=== PATIENT | female | born 1995 | race Two or more races ===

== ENCOUNTER → 2020-10-31 | Outpatient (CLI) | payer BC ==
[2020-10-31 10:54] LABS: Basophils # (auto) 0 10 ^3/uL (0-0.2); Basophils % (auto) 0.5 % (0.0-2.0); Eosinophils # (auto) 0.1 10 ^3/uL (0-0.8); Eosinophils % (auto) 1.6 % (0.0-7.0); Hematocrit 37.6 % (36.0-46.0); Hemoglobin 12.6 g/dL (12.2-16.2); Lymphocytes # (auto) 2.6 10 ^3/uL (0.4-5.4); Lymphocytes % (auto) 47.5 % (10.0-50.0); Mean Corpuscular Hemoglobin 29.9 pg (28.0-32.0); Mean Corpuscular Hgb Conc. 33.6 g/dL (32.0-36.0); Monocytes # (auto) 0.4 10 ^3/uL (0-1.3); Monocytes % (auto) 7.1 % (0.0-12.0); Neutrophils # (auto) 2.4 10 ^3/uL (1.6-8.6); Neutrophils % (auto) 43.3 % (37.0-80.0); Nucleated Red Blood Cells % 0.1 %; Platelet Count (auto) 260 10^3/uL (140-450); Red Blood Cells 4.23 10^6/uL (4.0-5.20); Red Cell Distribution Width 13.2 % (11.8-14.3); White Blood Cell 5.5 10^3/uL (4.4-10.8)
[2020-10-31 11:30] LABS: Albumin 3.9 g/dL (3.4-5.0); Calcium 8.8 mg/dL (8.5-10.1); Potassium 4.8 mmol/L (3.5-5.1)
[2020-10-31 11:34] LABS: BUN/Creatinine Ratio 12.9; Bilirubin, Total 0.6 mg/dL (0.2-1.0)
[2020-10-31 11:35] LABS: Follicle Stimulating Hormone 4.39 IU/L (SEE BELOW); Free T4 (Free Thyroxine) 1.14 ng/dL (0.89-1.76); Leuteinizing Hormone 10.2 IU/L; Prolactin 8.52 ng/mL (2.8-29.2)
== END | disposition home or self-care (01) ==
LOC: LAB 10:11
PROVIDERS: ATTEND Internal Medicine
DX: N92.0 Excessive and frequent menstruation with regular cycle (principal); E28.2 Polycystic ovarian syndrome
CPT/HCPCS: 36415; 80053; 83001; 83002; 84146; 84439; 84443; 85025; 85652

== ENCOUNTER → 2022-03-30 | Outpatient (CLI) | payer BC ==
[2022-03-30 13:01] LABS: Basophils # (auto) 0 10 ^3/uL (0-0.2); Basophils % (auto) 0.5 % (0.0-2.0); Eosinophils # (auto) 0.1 10 ^3/uL (0-0.8); Eosinophils % (auto) 1.3 % (0.0-7.0); Hematocrit 34.6 % (36.0-46.0); Hemoglobin 11.2 g/dL (12.2-16.2); Mean Corpuscular Hemoglobin 27.9 pg (28.0-32.0); Mean Corpuscular Hgb Conc. 32.4 g/dL (32.0-36.0); Mean Corpuscular Volume 86.3 fL (80.0-100.0); Monocytes # (auto) 0.5 10 ^3/uL (0-1.3); Monocytes % (auto) 7.1 % (0.0-12.0); Neutrophils # (auto) 3.3 10 ^3/uL (1.6-8.6); Neutrophils % (auto) 48.1 % (37.0-80.0); Nucleated Red Blood Cells % 0.1 %; Red Cell Distribution Width 13.3 % (11.8-14.3); White Blood Cell 6.9 10^3/uL (4.4-10.8)
[2022-03-30 13:23] LABS: Albumin 3.7 g/dL (3.4-5.0); Calcium 8.2 mg/dL (8.5-10.1); Potassium 3.9 mmol/L (3.5-5.1)
[2022-03-30 13:26] LABS: BUN/Creatinine Ratio 19.5; Bilirubin, Total 0.7 mg/dL (0.2-1.0); Total Protein 7.3 g/dL (6.4-8.2)
[2022-03-30 13:32] LABS: Free T4 (Free Thyroxine) 1.2 ng/dL (0.89-1.76); Prolactin 9.67 ng/mL (2.8-29.2)
[2022-03-30 13:38] LABS: Beta HCG, Quantitative < 1 mlU/mL (1-3); Thyroid Stimulating Hormone 0.99 uIU/mL (0.358-3.74)
== END | disposition home or self-care (01) ==
LOC: LAB 12:38
PROVIDERS: ATTEND Internal Medicine
DX: N93.9 Abnormal uterine and vaginal bleeding, unspecified (principal)
CPT/HCPCS: 36415; 80053; 84146; 84439; 84443; 84702; 85025

== ENCOUNTER → 2022-11-20 | Outpatient (CLI) | payer BC ==
[2022-11-20 07:40] LABS: Basophils # (auto) 0 10 ^3/uL (0-0.2); Basophils % (auto) 0.8 % (0.0-2.0); Eosinophils # (auto) 0.1 10 ^3/uL (0-0.8); Eosinophils % (auto) 2.3 % (0.0-7.0); Hematocrit 39.1 % (36.0-46.0); Hemoglobin 13.2 g/dL (12.2-16.2); Lymphocytes # (auto) 2.7 10 ^3/uL (0.4-5.4); Lymphocytes % (auto) 48.9 % (10.0-50.0); Mean Corpuscular Hemoglobin 29.6 pg (28.0-32.0); Mean Corpuscular Hgb Conc. 33.8 g/dL (32.0-36.0); Mean Corpuscular Volume 87.5 fL (80.0-100.0); Monocytes # (auto) 0.4 10 ^3/uL (0-1.3); Monocytes % (auto) 7.6 % (0.0-12.0); Neutrophils # (auto) 2.3 10 ^3/uL (1.6-8.6); Neutrophils % (auto) 40.4 % (37.0-80.0); Nucleated Red Blood Cells % 0.1 %; Red Blood Cells 4.47 10^6/uL (4.0-5.20); Red Cell Distribution Width 14.5 % (11.8-14.3); White Blood Cell 5.6 10^3/uL (4.4-10.8)
[2022-11-20 08:14] LABS: Urine Bacteria NONE SEEN /hpf (None Seen); Urine Blood TRACE /uL (Negative); Urine Specific Gravity 1.016 (1.001-1.035); Urine WBC 1 /hpf (0 - 5)
[2022-11-20 08:23] LABS: Albumin 3.9 g/dL (3.4-5.0); Calcium 8.9 mg/dL (8.5-10.1); Potassium 4.4 mmol/L (3.5-5.1)
[2022-11-20 08:32] LABS: Free T4 (Free Thyroxine) 1.04 ng/dL (0.89-1.76)
[2022-11-20 08:33] LABS: BUN/Creatinine Ratio 13.1 (10.0-20.0); Bilirubin, Total 0.9 mg/dL (0.2-1.0); Total Protein 7.6 g/dL (6.4-8.2)
[2022-11-20 08:48] LABS: % Iron Saturation 27.7 % (15-50)
== END | disposition home or self-care (01) ==
LOC: LAB 07:22
PROVIDERS: ATTEND Internal Medicine
DX: D64.9 Anemia, unspecified (principal); E28.2 Polycystic ovarian syndrome
CPT/HCPCS: 36415; 80053; 80061; 81001; 82607; 83036; 83540; 83550; 84439; 84443; 85025; 85652

== ENCOUNTER → 2023-10-25 | Outpatient (CLI) | payer BC ==
[2023-10-25 10:59] LABS: Basophils # (auto) 0 10 ^3/uL (0-0.2); Basophils % (auto) 0.7 % (0.0-2.0); Eosinophils # (auto) 0.1 10 ^3/uL (0-0.8); Eosinophils % (auto) 1.5 % (0.0-7.0); Hematocrit 40.2 % (36.0-46.0); Hemoglobin 13.2 g/dL (12.2-16.2); Lymphocytes # (auto) 2.5 10 ^3/uL (0.4-5.4); Lymphocytes % (auto) 42.8 % (10.0-50.0); Mean Corpuscular Hemoglobin 28.8 pg (28.0-32.0); Mean Corpuscular Hgb Conc. 32.8 g/dL (32.0-36.0); Mean Corpuscular Volume 87.8 fL (80.0-100.0); Monocytes # (auto) 0.5 10 ^3/uL (0-1.3); Monocytes % (auto) 8.7 % (0.0-12.0); Neutrophils # (auto) 2.7 10 ^3/uL (1.6-8.6); Neutrophils % (auto) 46.3 % (37.0-80.0); Red Blood Cells 4.58 10^6/uL (4.0-5.20); Red Cell Distribution Width 13.7 % (11.8-14.3); White Blood Cell 5.8 10^3/uL (4.4-10.8)
[2023-10-25 11:38] LABS: Alanine Aminotransferase 46 U/L (7-40); Alkaline Phosphatase 73 U/L (46-116); Anion Gap 4 (5-15); Aspartate Aminotransferase 28 U/L (13-40); BUN/Creatinine Ratio 8.1 (10.0-20.0); Blood Urea Nitrogen 7 mg/dL (9-23); Calcium 9.8 mg/dL (8.5-10.1); Carbon Dioxide 27 mmol/L (20-30); Chloride 106 mmol/L (98-107); Glucose 89 mg/dL (74-106); LDL Cholesterol 200 mg/dL (< 100); Potassium 4.1 mmol/L (3.5-5.1); Sodium 137 mmol/L (136-145); Triglycerides 83 mg/dL (< 150)
[2023-10-25 11:39] LABS: Albumin 4.7 g/dL (3.2-4.8); Bilirubin, Total 1.3 mg/dL (0.2-1.0); Cholesterol 250 mg/dL (< 200); HDL Cholesterol 43 mg/dL (40-59); Total Protein 7.6 g/dL (5.7-8.2)
[2023-10-25 12:03] LABS: Erythrocyte Sedimentation Rate 18 mm/hr (0-20)
== END | disposition home or self-care (01) ==
LOC: LAB 10:25
PROVIDERS: ATTEND Internal Medicine
DX: E28.2 Polycystic ovarian syndrome (principal); M54.31 Sciatica, right side
CPT/HCPCS: 36415; 80053; 80061; 84439; 84443; 85025; 85652

== ENCOUNTER → 2024-04-16 | Outpatient (CLI) | payer BC ==
[2024-04-16 11:49] LABS: Basophils # (auto) 0 10 ^3/uL (0-0.2); Basophils % (auto) 0.4 % (0.0-2.0); Eosinophils # (auto) 0.1 10 ^3/uL (0-0.8); Eosinophils % (auto) 1.1 % (0.0-7.0); Hemoglobin 13.6 g/dL (12.2-16.2); Lymphocytes # (auto) 2.1 10 ^3/uL (0.4-5.4); Lymphocytes % (auto) 30.7 % (10.0-50.0); Mean Corpuscular Hemoglobin 29.6 pg (28.0-32.0); Mean Corpuscular Hgb Conc. 33.2 g/dL (32.0-36.0); Mean Corpuscular Volume 89.1 fL (80.0-100.0); Monocytes # (auto) 0.4 10 ^3/uL (0-1.3); Monocytes % (auto) 6.1 % (0.0-12.0); Neutrophils # (auto) 4.1 10 ^3/uL (1.6-8.6); Neutrophils % (auto) 61.7 % (37.0-80.0); Nucleated Red Blood Cells % 0.1 %; Platelet Count (auto) 321 10^3/uL (140-450); Red Cell Distribution Width 12.9 % (11.8-14.3); White Blood Cell 6.7 10^3/uL (4.4-10.8)
[2024-04-16 12:34] LABS: Alanine Aminotransferase 36 U/L (7-40); Alkaline Phosphatase 85 U/L (46-116); Anion Gap 5 (5-15); Aspartate Aminotransferase 18 U/L (13-40); Blood Urea Nitrogen 7 mg/dL (9-23); Carbon Dioxide 29 mmol/L (20-31); Chloride 104 mmol/L (98-107); Glucose 86 mg/dL (74-106); Potassium 4.1 mmol/L (3.5-5.1); Sodium 138 mmol/L (136-145)
[2024-04-16 12:35] LABS: Albumin 4.8 g/dL (3.2-4.8); Bilirubin, Total 1.3 mg/dL (0.2-1.0)
[2024-04-16 12:36] LABS: Follicle Stimulating Hormone 8.39 IU/L (SEE BELOW)
[2024-04-16 12:37] LABS: Leuteinizing Hormone 15.8 IU/L; Prolactin 7.95 ng/mL (2.8-29.2)
[2024-04-16 12:38] LABS: Free T4 (Free Thyroxine) 1.13 ng/dL (0.89-1.76); Thyroid Stimulating Hormone 0.45 uIU/mL (0.55-4.78)
[2024-04-16 12:55] LABS: Beta HCG, Quantitative 0.2 mIU/mL (1.5-4.2)
[2024-04-17 08:06] LABS: Estradiol 37.4 pg/mL (.); Testosterone 51 ng/dL (13-71)
[2024-04-17 20:06] LABS: Chlamydia Trachomatis, NAA Negative (Negative); Neisseria gonorrhoeae, NAA Negative (Negative)
== END | disposition home or self-care (01) ==
LOC: LAB 11:08
PROVIDERS: ATTEND Obstetrics & Gynecology
DX: E28.2 Polycystic ovarian syndrome (principal); Z87.42 Personal history of other diseases of the female genital tract
CPT/HCPCS: 36415; 80053; 82670; 83001; 83002; 84146; 84402; 84403; 84439; 84443; 84702; 85025

== ENCOUNTER → 2024-08-10 | Day surgery (SDC) | payer BC ==
[2024-08-07 12:05] LABS: Basophils # (auto) 0 10 ^3/uL (0-0.2); Basophils % (auto) 0.5 % (0.0-2.0); Eosinophils # (auto) 0.1 10 ^3/uL (0-0.8); Eosinophils % (auto) 1.5 % (0.0-7.0); Hematocrit 42.2 % (36.0-46.0); Lymphocytes # (auto) 2.4 10 ^3/uL (0.4-5.4); Mean Corpuscular Hemoglobin 29.3 pg (28.0-32.0); Mean Corpuscular Hgb Conc. 33.3 g/dL (32.0-36.0); Monocytes # (auto) 0.4 10 ^3/uL (0-1.3); Monocytes % (auto) 6.9 % (0.0-12.0); Neutrophils # (auto) 3.1 10 ^3/uL (1.6-8.6); Neutrophils % (auto) 51.1 % (37.0-80.0); Nucleated Red Blood Cells % 0.1 %; Platelet Count (auto) 288 10^3/uL (140-450); Red Cell Distribution Width 13.1 % (11.8-14.3); White Blood Cell 6.1 10^3/uL (4.4-10.8)
[2024-08-07 12:07] LABS: Urine Bacteria FEW /hpf (None Seen); Urine Blood Negative /uL (Negative); Urine Clarity Turbid (Clear); Urine Color Yellow (Yellow); Urine Mucus FEW (None Seen); Urine Protein, UAD TRACE (Negative); Urine Specific Gravity 1.029 (1.001-1.035); Urine Squamous Epithelial Cell FEW /hpf (<5); Urine Urobilinogen Normal (Negative); Urine WBC 14 /HPF (0-5); Urine pH 6.5 (5.0-9.0)
[2024-08-07 12:16] LABS: INR 0.99 (0.9-1.15); Partial Thromboplastin Time 31.4 SEC (24.5-34.5); Prothrombin Time 10.5 sec (9.3-11.8)
[2024-08-07 12:33] LABS: Alanine Aminotransferase 21 U/L (7-40); Alkaline Phosphatase 80 U/L (46-116); Anion Gap 9 (5-15); Aspartate Aminotransferase 16 U/L (13-40); BUN/Creatinine Ratio 11.6 (10.0-20.0); Bilirubin, Total 1.1 mg/dL (0.2-1.0); Blood Urea Nitrogen 11 mg/dL (9-23); Calcium 10.3 mg/dL (8.7-10.4); Carbon Dioxide 28 mmol/L (20-31); Chloride 103 mmol/L (98-107); Glucose 98 mg/dL (74-106); Potassium 4.2 mmol/L (3.5-5.1); Sodium 140 mmol/L (136-145); Total Protein 8.2 g/dL (5.7-8.2)
[2024-08-07 12:35] LABS: Albumin 5.2 g/dL (3.2-4.8)
[~2024-08-10] VITALS: Ht 160 cm; Wt 99.8 kg
[~2024-08-10] MED LIST: BUPIVACAINE 0.25% INJ 50ML VIAL ONE; DexAMETHasone SOD PHOS 10MG/1ML VIAL INJ ONE; GLYCOPYRROLATE 0.2 MG/ML 1ML VIAL ONE; HYDROmorphone HCL 2 MG/ML VL/or syr IV PRN; HYDROmorphone HCL 2 MG/ML VL/or syr ONE; KETOROLAC TROMETH 30 MG/ML 1ML VIAL ONE; LIDOCAINE 2% (LOCAL ANESTH.) PF 5ml SDV ONE; MIDAZOLAM HCL 2MG/2ML 2ml VIAL (1mg/ml) ONE; ONDANSETRON HCL 4 MG/2 ML VIAL IV ONE; ONDANSETRON HCL 4 MG/2 ML VIAL ONE; ceFAZolin 2 GM/D5W100ml 100 ML IV ONE; fentaNYL CITRATE 100 MCG/2 ML VL ONE
[2024-08-10] MEDS: LIDOCAINE W/ EPINEPHRINE 1% 20ML VIAL ONE (07:34)
[2024-08-10 07:44] VITALS: PULSE 67; RESP 12; O2SAT 94
[2024-08-10 09:00] VITALS: BP 122/76; PULSE 61; RESP 13; O2SAT 96
--- NOTE | 2024-08-11 14:55 | DVHOP2 ---
Operative Report - 2 Report Details Date: 08/10/24 Preop Diagnosis: Right wrist cubital tunnel Postop Diagnosis: Right wrist cubital tunnel Surgeon: Ramirez Reed MD Anesthesiologist: Jonh ALMARAZ Anesthesia: Mac, Local Consent: The patient was informed of the risks and benefits of the procedure. These include but are not limited to complications of anesthesia, postoperative infection, incomplete relief of symptoms, recurrence of symptoms, damage to bl ood vessels, nerves and tendons, deep venous thrombosis, pulmonary embolism and possible need for repeat surgery in the future. Estimated Blood Loss: 2 cc Name of Procedure Performed Right cubital tunnel release Procedure Details Procedure Details: Indications: she has had EMG/NCV testing that is consistent with her clinical exam she wishes to proceed with surgical intervention. Risks/benefits/options and alternatives were discussed in depth with patient. Risks include but not exclusive to: bleeding, infection, nerve injury, chronic pain, stiffness, motor or sensory paralysis, loss of limb, deep venous thrombosis, and . Patient had a large cyst near carpal tunnel but that popped and went away. Mainly numbness now in ring and small finger. PROCEDURE IN DETAIL: Patient was seen in the preoperative area. Consent was signed and then she was taken to the operating room. With the patient under adequate anesthesia, the upper extremity was prepped and draped in a sterile manner. The arm was exsanguinated. The tourniquet was elevated at 250 mm/Hg. Construction lines were made on the cubital tunnel. We then made a 5 cm incision over cubital tunnel. Blunt dissection to ulnar nerve. At that point ulnar nerve protected and cubital release done releasing the ulnar nerve. Hemostasis maintained with bipolar cautery. Patients nerve stayed within the groove so did not need transposition. The wound was then closed with 3-0 nylon for carpal and 2-0 vicryl/shannan for cubital tunnel. sterile dressing was applied. The tourniquet was deflated. The patient was awakened from anesthesia and returned to the Recovery Room in satisfactory condition, having tolerated the procedure well. Condition Good Disposition Home RAMIREZ REED MD Aug 11, 2024 14:55
== END | disposition home or self-care (01) ==
LOC: SUR 06:09
PROVIDERS: ATTEND Orthopaedic Surgery Adult Reconstructive Orthopaedic Surgery
DX: G56.21 Lesion of ulnar nerve, right upper limb (principal); M67.48 Ganglion, other site
CPT/HCPCS: 36415; 64718; 80053; 81001; 84702; 85025; 85610; 85730; J1100; J1171; J1885; J2003; J2250; J2405; J3010; J3490

== ENCOUNTER 2025-05-26 18:50 | Emergency (ER) | payer BC, OTHER ==
[~2025-05-26] VITALS: Ht 160 cm; Wt 108.2 kg
[2025-05-26 18:51] VITALS: BP 118/83; PULSE 60; RESP 18; TEMP 97.6; O2SAT 95
[2025-05-26] MEDS ORDERED: ACET500T58 PO (20:50)
--- NOTE | 2025-05-26 20:52 | ED.PDOC ---
Musculoskeletal HPI Comments 29 year old female presents to ER with complaints of left ankle pain x 5 days. Patient states that she fell and landed with most of her weight on her left ankle at work five days ago and has since been experiencing left ankle pain and swelling to left ankle. She rates her current pain a 5/10 to left ankle and denies use of medications for current symptoms. Patient presents to ER ambulatory on arrival, with steady gait, in no distress. 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 History Family History Family History: Unknown Social History Smoker: Non-Smoker Alcohol: Denies ETOH Use Drugs: Denies Drug Use Lives In: Home Constitutional: denies: chills, diaphoresis, fatigue, fever, malaise, sweats, weakness, others EENTM: denies: blurred vision, double vision, ear bleeding, ear discharge, ear drainage, ear pain, ear ringing, eye pain, eye redness, hearing loss, mouth p ain, mouth swelling, nasal discharge, nose bleeding, nose congestion, nose pain, photophobia, tearing, throat pain, throat swelling, voice changes, others Respiratory: denies: cough, hemoptysis, orthopnea, SOB at rest, shortness of br eath, SOB with excertion, stridor, wheezing, others Cardiovascular: denies: chest pain, dizzy spells, diaphoresis, Dyspnea on exertion, edema, irregular heart beat, left arm pain, lightheadedness, palpitations, PND, syncope, others Gastrointestinal: denies: abdomen distended, abdominal pain, blood streaked bowels, constipated, diarrhea, dysphagia, difficulty swallowing, hematemesis, melena, nausea, poor appetite, poor fluid intake, rectal bleeding, rectal pain, vomiting, others Genitourinary: denies: abnormal vagina bleeding, burning, dyspareunia, dysuria, flank pain, frequency, hematuria, incontinence, pain, , vagina discharge, urgency, others Neurological: denies: dizziness, fainting, headache, left sided numbness, left sided weakness, numbness, paresthesia, pre-existing deficit, right sided numbness, right sided weakness, seizure, speech problems, tingling, tremors, weakness, others Musculoskeletal: reports: others (As stated in HPI) Integumetry: reports: others (As stated in HPI) Allergic/Immunocompromised: denies: Difficulty Healing, Frequent Infections, Hives, Itching, others Hematologic/Lymphatic: denies: anemia, blood clots, easy bleeding, easy bruising, swollen glands, others Endocrine: denies: excessive hunger, excessive sweating, excessive thirst, excessive urination, flushing, intolerance to cold, intolerance to heat, unexplained weight gain, unexplained weight loss, others Psychiatric: denies: anxiety, bipolar disorder, depression, hopeless, panic disorder, schizophrenia, sleepless, suicidal, others Physical Exam General Appearance: No Apparent Distress, Obese HEENT: PERRL/EOMI Neck: Full Range of Motion, Non-Tender, Normal Respiratory: Chest Non-Tender, Lungs Clear, No Accessory Muscle Use, No Respiratory Distress, Normal Breath Sounds Cardiovascular: No Murmur, No Gallop, Regular Rate/Rhythm Breast Exam: Deferred Gastrointestinal: NOT DONE Genitalia: Deferred Pelvic: Deferred Rectal: Deferred Extremities: No calf tenderness, Normal capillary refill, Normal range of motion Musculoskeletal : Extremity Location: Ankle (TTP/mild swelling noted to left lateral malleolus. No other TTP to left lower extremity noted. No further skin changes noted. Pulses intact. Steady gait appreciated) Neurologic: Alert, No Motor Deficits, Normal Affect, Normal Mood, No Sensory Deficits Cerebellar Function: Normal Reflexes: Normal Skin: Dry, Normal Color, Warm Peripheral Pulses: 2+ dorsalis pedis (R), 2+ dorsalis pedis (L), 2+ Radial (R), 2+ Radial (L), 2+ Brachial (R), 2+ Brachial (L) Lymphatic: No Adenopathy Was a procedure done? Was a procedure done?: No Sedation Sedation?: No Differential Diagnosis EXT Differential Diagnosis: Fracture, Dislocation, Neurovascular injury X-Ray, Labs, Meds, VS Vital Signs Date Time Temp Pulse Resp B/P (MAP) Pulse Ox O2 Delivery O2 Flow Rate FiO2 05/26/25 18:51 97.6 60 18 118/83 95 97.6 PATIENT: BERKLEY SOLORIO: [id number]: [id number] : 1995 LOC: ER ROOM / BED: / AGE / SEX: 29 / F ADM STATUS: REG ER SERVICE 40 ORDERING PHYSICIAN: RAMU RAMACHANDRAN PROCEDURE(s): LANKL - L ANKLE 3 VIEW REASON: left ankle pain ORDER NUMBER(s): [id number], ACCESSION NUMBER(s): [id number] CLINICAL INDICATION: left ankle pain TECHNIQUE: 3 radiographic views of the left ankle were obtained. COMPARISON: None FINDINGS/IMPRESSION: Soft tissue swelling is noted over the lateral malleolus. Distal tibia and fibula are intact. There are no fractures. Ankle mortise is symmetrical. ATED BY: SUZE DUMAS Jr., DO DICTATED DATE/TIME: 05/26/252104 SIGNED BY: SUZE DUMAS Jr., DO SIGNED DATE/TIME: 05/26/252104 CC: waiver signed Left ankle x-ray reviewed Patient neurovascularly intact Advised on elevation and alternate ice on/off as needed for pain/swelling Patient refused Chadwick wrap and crutches in ER Workman's comp paperwork filled out Advised to follow up with PCP, workman's comp PCP and orthopedics in 1-2 days Patient verbalized understanding and agreeable with current plan of care Advised to return to ER immediately if symptoms worsen Images Reviewed?: Images reviewed and evaluated by me Time of 1ST Reevaluation: 20:34 Reevaluation 1ST: N/A Patient Education/Counseling: Diagnosis, Treatment, Prognosis, Need For Follow Up Family Education/Counseling: No Family Present Departure 1 Departure Time of Disposition: 20:50 Impression: Primary Impression: Left ankle sprain Qualified Codes: S93.402A - Sprain of unspecified ligament of left ankle, initial encounter Disposition: HOME / SELF CARE / HOMELESS Condition: Stable e-Prescriptions Acetaminophen (Acetaminophen) 500 Mg Tab 500 MG PO Q4HPRN, #30 TAB 0 Refills Prov: RAMU RAMACHANDRAN 05/26/25 Discharged With: Friend Critical Care Note Critical Care Time?: No Stability Stability form required: No Heart Score Heart Score: Heart Score Response (Comments) Value History N/A 0 EKG N/A 0 Age N/A 0 Risk Factors N/A 0 Troponin N/A 0 Total 0 RAMU RAMACHANDRAN May 26, 2025 20:52
--- NOTE | 2025-05-26 21:08 | DVH ---
CLINICAL INDICATION: left ankle pain TECHNIQUE: 3 radiographic views of the left ankle were obtained. COMPARISON: None FINDINGS/IMPRESSION: Soft tissue swelling is noted over the lateral malleolus. Distal tibia and fibula are intact. There are no fractures. Ankle mortise is symmetrical.
== END 2025-05-26 22:01 | disposition home or self-care (01) ==
LOC: ER 18:50
DX: S93.402A Sprain of unspecified ligament of left ankle, initial encounter (principal); Z79.899 Other long term (current) drug therapy; W19.XXXA Unspecified fall, initial encounter; Y93.89 Activity, other specified; Y92.89 Other specified places as the place of occurrence of the external cause; Y99.8 Other external cause status
CPT/HCPCS: 73610